=== PATIENT | male | born 1955 | race African-American/Black ===

== ENCOUNTER 2017-05-22 15:22 | Emergency (ER) | payer OTHER ==
[~2017-05-22] VITALS: Ht 177.8 cm; Wt 64.1 kg
[2017-05-22 15:27] VITALS: BP 136/96
[2017-05-22] MEDS ORDERED: NEOMYCIN-POLYMY10 M1 BOTH EARS (16:55)
[2017-05-22] MEDS ORDERED: NORCO 5/3251 TABLET PO (16:55)
[2017-05-22] MEDS ORDERED: ACYCLOVIR200 MG PO (16:55)
== END 2017-05-22 17:22 | disposition home or self-care (01) ==
LOC: EME 15:22
DX: B02.9 Zoster without complications (principal)
CPT/HCPCS: 99281; 99284

== ENCOUNTER 2017-07-02 10:17 | Emergency (ER) | payer OTHER ==
[~2017-07-02] VITALS: Ht 177.8 cm; Wt 65.3 kg
[~2017-07-02 10:17] MED LIST: ACYCLOVIR200 MG PO; NEOMYCIN-POLYMY10 M1 BOTH EARS; NORCO 5/3251 TABLET PO
[2017-07-02 11:50] LABS: HEMATOCRIT 41.5 % (38.0-50.0); MCH 29.4 PG (29.0-34.0); MCHC 34.9 G/DL (30.0-36.0); MEAN PLAT.VOLUME 8.9 uM^3 (9.0-12.4); PLATELET COUNT 297 K/uL (156-360); RBC DIS.WIDTH-CV 13.6 % (11.8-14.6); RBC DIS.WIDTH-SD 41.8 % (39-53); RED BLOOD COUNT 4.94 M/uL (4.00-5.50); WHITE BLOOD COUNT 5.6 K/uL (4.1-10.2)
[2017-07-02 12:04] LABS: CHLORIDE 100 mEq/L (99-109); POTASSIUM 3.7 mEq/L (3.7-5.4); SODIUM 138 mEq/L (136-147)
[2017-07-02 12:05] LABS: GLUCOSE 113 mg/dL (70-99)
[2017-07-02 12:07] LABS: ANION GAP 12 MEQ/L (2-14)
[2017-07-02 12:09] LABS: GFR ESTIMATE (CALCULATED) > 59 mL/min/
[2017-07-02 12:10] LABS: UREA NITROGEN (BUN) 12 mg/dL (9-23)
[2017-07-02] MEDS ORDERED: PERCOCET 5/31 TABLET PO (15:05)
[2017-07-02] MEDS ORDERED: DIAMOX SEQUELS500 MG PO (15:05)
[2017-07-02] MEDS ORDERED: LATANOPROST2.5 ML LEFT EYE (15:05)
[2017-07-02] MEDS ORDERED: COSOPT EYE DROPS5 ML LEFT EYE (15:05)
[2017-07-02] MEDS ORDERED: ALPHAGAN P100 DROP/1 LEFT EYE (15:05)
[2017-07-02 15:26] VITALS: BP 119/89
== END 2017-07-02 15:28 | disposition home or self-care (01) ==
LOC: EME 10:17
PROVIDERS: Emergency Medicine
DX: H40.89 Other specified glaucoma (principal); R51 Headache; J32.9 Chronic sinusitis, unspecified; F17.200 Nicotine dependence, unspecified, uncomplicated
CPT/HCPCS: 70450; 70486; 80048; 85027; 99281; 99285; J2270

== ENCOUNTER 2018-02-08 23:33 | Inpatient (IN) | payer OTHER ==
[~2018-02-08] VITALS: Ht 175.3 cm; Wt 62.9 kg
[~2018-02-08 23:33] MED LIST changes: +ALPHAGAN P100 DROP/1 LEFT EYE; +COSOPT EYE DROPS5 ML LEFT EYE; +DIAMOX SEQUELS500 MG PO; +LATANOPROST2.5 ML LEFT EYE; +PERCOCET 5/31 TABLET PO
[2018-02-09 00:09] LABS: HEMATOCRIT 43.6 % (38.0-50.0); HEMOGLOBIN 15.8 G/DL (12.5-16.6); MCH 30.2 PG (29.0-34.0); MCHC 36.2 G/DL (30.0-36.0); MCV 83.2 FL (86-99); PLATELET COUNT 261 K/uL (156-360); RBC DIS.WIDTH-CV 11.8 % (11.8-14.6); RBC DIS.WIDTH-SD 35.7 % (39-53); RED BLOOD COUNT 5.24 M/uL (4.00-5.50); WHITE BLOOD COUNT 5.1 K/uL (4.1-10.2)
[2018-02-09 00:32] LABS: ALBUMIN 4.6 G/DL (3.2-4.8); ALKALINE PHOSPHATASE 64 IU/L (3-129); ALT (GPT) 7 IU/L (3-49); AST (GOT) 12 IU/L (2-34); CHLORIDE 101 MEQ/L (99-109); GFR ESTIMATE (CALCULATED) > 59 mL/min/ (58.99-99999); GLUCOSE 109 mg/dL (70-99); POTASSIUM 3.6 MEQ/L (3.7-5.4); SODIUM 136 MEQ/L (136-147); TOTAL BILIRUBIN 1.4 MG/DL (0.0-1.0); TOTAL PROTEIN 7.1 G/DL (6.4-8.3); UREA NITROGEN (BUN) 15 mg/dL (9-23)
[2018-02-09 02:56] LABS: TROP-I INTERPRETATION NEGATIVE; TROPONIN-I < 0.01 ng/mL (0.0-0.30)
[2018-02-09 02:57] LABS: APPEARANCE CLEAR ((CLEAR)); BILIRUBIN NEGATIVE; BLOOD SMALL; COLOR STRAW ((YELLOW)); GLUCOSE (STRIP) NEGATIVE; KETONES NEGATIVE; LEUKOCYTES NEGATIVE; NITRITE NEGATIVE; PROTEIN (STRIP) NEGATIVE; SPECIFIC GRAVITY 1.008 (1.000-1.030)
[2018-02-09 03:03] LABS: TROP-I INTERPRETATION NEGATIVE; TROPONIN-I < 0.01 ng/mL (0.0-0.30)
[2018-02-09 03:03] LABS: BACTERIA NONE SEEN /HPF; EPITHELIAL CELLS RARE /HPF; MUCUS TRACE /LPF; RED BLOOD CELLS 0-5 /HPF (0-5); UCUL ADDED? NO; WHITE BLOOD CELLS 0-5 /HPF (0-5)
[2018-02-09 05:42] LABS: HDL CHOLESTEROL 40 MG/DL (Desirable>=40); LDL CHOLESTEROL 97 mg/dL (Desirable<100); NON-HDL CHOLESTEROL 116 mg/dL (Desirable<160); TOTAL CHOLESTEROL 156 mg/dL (Desirable<200); TRIGLYCERIDES 94 MG/DL (Normal: <150)
[2018-02-09 06:32] VITALS: BP 171/91
[2018-02-09 08:45] LABS: HEMOGLOBIN A1c (GLYCOHEMOGLOB) 5.3 % (Below 5.7)
[2018-02-09] MEDS ORDERED: LATANOPROST2.5 ML RIGHT EYE (10:42)
[2018-02-09] MEDS ORDERED: TIVICAY50 MG PO (10:43)
[2018-02-09] MEDS ORDERED: PREZCOBIX 8001 EACH PO (10:43)
[2018-02-09] MEDS ORDERED: TRUVADA1 TABLET PO (10:44)
[2018-02-09 12:09] VITALS: BP 140/87
[2018-02-09 12:25] LABS: TROP-I INTERPRETATION NEGATIVE; TROPONIN-I < 0.01 ng/mL (0.0-0.30)
[2018-02-09 15:44] VITALS: BP 127/82
[2018-02-09 19:51] VITALS: BP 117/82
[2018-02-09 23:57] VITALS: BP 133/86
[2018-02-10 03:21] VITALS: BP 121/71
[2018-02-10 07:56] VITALS: BP 125/77
[2018-02-10 12:14] VITALS: BP 113/77
[2018-02-10 15:53] VITALS: BP 116/67
[2018-02-10 20:03] VITALS: BP 137/82
[2018-02-10 23:39] VITALS: BP 123/79
[2018-02-11 03:45] VITALS: BP 113/60
[2018-02-11 07:40] VITALS: BP 118/70
[2018-02-11 11:51] VITALS: BP 103/68
[2018-02-11 19:25] VITALS: BP 92/57
[2018-02-11 23:30] VITALS: BP 105/60
[2018-02-12] VITALS (7 sets, daily range): BP systolic 86–133; BP diastolic 51–78
[2018-02-13 00:22] VITALS: BP 117/79
[2018-02-13 03:50] VITALS: BP 122/79
[2018-02-13 07:08] VITALS: BP 108/69
[2018-02-13 15:16] VITALS: BP 106/62
[2018-02-13 23:53] VITALS: BP 123/85
[2018-02-14 07:23] VITALS: BP 119/73
[2018-02-14] MEDS ORDERED: ACETAZOLAMIDE500 MG PO (14:56)
[2018-02-14] MEDS ORDERED: AMITRIPTYLINE H25 MG PO (14:56)
[2018-02-14] MEDS ORDERED: REGLAN10 MG PO (14:56)
[2018-02-14] MEDS ORDERED: ANTIVERT25 MG PO (14:56)
[2018-02-14] MEDS ORDERED: COMBIGAN O20 DROP/5 LEFT EYE (15:55)
[2018-02-14] MEDS ORDERED: OXYCODONE HCL5 MG PO (16:01)
[2018-02-14 16:05] VITALS: BP 148/89
== END 2018-02-14 19:08 | disposition home or self-care (01) | DRG 125 ==
LOC: EME 23:33 → EDOF 02-09 04:39 → 5SOUTH 02-09 04:39 → ENRESERV 02-09 04:40 → 5SOUTH 02-09 05:57
PROVIDERS: Emergency Medicine; Physician Assistant
DX: H40.9 Unspecified glaucoma (principal); H93.3X2 Disorders of left acoustic nerve; H27.10 Unspecified dislocation of lens; H54.40 Blindness, one eye, unspecified eye; Z21 Asymptomatic human immunodeficiency virus [HIV] infection status; E87.6 Hypokalemia; F17.210 Nicotine dependence, cigarettes, uncomplicated; Z66 Do not resuscitate
CPT/HCPCS: 70450; 80053; 80061; 81003; 83036; 83735; 84484; 85027; 85651; 93005; 93880; 99281; 99285; J1644; J1885; J2270; J2405; J2765; J7030; J7040

== ENCOUNTER 2018-02-27 16:10 | Inpatient (IN) | payer OTHER ==
[~2018-02-27] VITALS: Ht 175.3 cm; Wt 53.1 kg
[~2018-02-27 16:10] MED LIST changes: +ACETAZOLAMIDE500 MG PO; +AMITRIPTYLINE H25 MG PO; +ANTIVERT25 MG PO; +COMBIGAN O20 DROP/5 LEFT EYE; +LATANOPROST2.5 ML RIGHT EYE; +OXYCODONE HCL5 MG PO; +PREZCOBIX 8001 EACH PO; +REGLAN10 MG PO; +TIVICAY50 MG PO; +TRUVADA1 TABLET PO
[2018-02-27 18:16] LABS: HEMATOCRIT 44.4 % (38.0-50.0); HEMOGLOBIN 15.8 G/DL (12.5-16.6); MCH 29.9 PG (29.0-34.0); MCHC 35.6 G/DL (30.0-36.0); MCV 83.9 FL (86-99); PLATELET COUNT 229 K/uL (156-360); RBC DIS.WIDTH-CV 11.6 % (11.8-14.6); RED BLOOD COUNT 5.29 M/uL (4.00-5.50); WHITE BLOOD COUNT 6.1 K/uL (4.1-10.2)
[2018-02-27 18:23] LABS: ALBUMIN 3.7 g/dL (3.2-4.8); CHLORIDE 99 mEq/L (99-109); POTASSIUM 4.2 mEq/L (3.7-5.4); SODIUM 136 mEq/L (136-147)
[2018-02-27 18:25] LABS: GLUCOSE 132 mg/dL (70-99)
[2018-02-27 18:26] LABS: TOTAL PROTEIN 6.6 g/dL (6.4-8.3)
[2018-02-27 18:27] LABS: TOTAL BILIRUBIN 0.9 mg/dL (0.0-1.0)
[2018-02-27 18:29] LABS: ALKALINE PHOSPHATASE 80 IU/L (3-129); CREATININE 1.2 mg/dL (0.6-1.3); GFR ESTIMATE (CALCULATED) > 59 mL/min/ (58.99-99999)
[2018-02-27 18:30] LABS: UREA NITROGEN (BUN) 39 mg/dL (9-23)
[2018-02-27 18:31] LABS: AST (GOT) 20 IU/L (2-34)
[2018-02-27 18:32] LABS: ALT (GPT) 16 IU/L (3-49)
[2018-02-27 18:33] LABS: LIPASE 89 U/L (1.0-51.0)
[2018-02-27 21:41] LABS: APPEARANCE CLEAR ((CLEAR)); BILIRUBIN NEGATIVE; BLOOD NEGATIVE; COLOR YELLOW ((YELLOW)); GLUCOSE (STRIP) NEGATIVE; KETONES NEGATIVE; LEUKOCYTES NEGATIVE; NITRITE NEGATIVE; PROTEIN (STRIP) NEGATIVE; SPECIFIC GRAVITY 1.025 (1.000-1.030)
[2018-02-27] MEDS ORDERED: LUMIGAN 0.50 DROP/22 BOTH EYES (23:50)
[2018-02-27] MEDS ORDERED: DUREZOL 0.100 DROP/5 BOTH EYES (23:50)
[2018-02-27] MEDS ORDERED: ATROPINE 1100 DROP/5 LEFT EYE (23:50)
[2018-02-27 23:53] LABS: BASOPHIL (%) 0.3 % (0-1); EOSINOPHIL (%) 0.9 % (0-5); EOSINOPHIL COUNT 0.1 K/uL (0-0.3); IMMATURE GRANULOCYTE (%) 0.2 % (0.0-0.7); LYMPHOCYTE (%) 28.1 % (15-42); LYMPHOCYTE COUNT 1.6 K/uL (1.0-2.8); MONOCYTE (%) 9.5 % (3-12); MONOCYTE COUNT 0.6 K/uL (0-0.8); NEUTROPHIL COUNT 3.5 K/uL (1.8-6.4)
[2018-02-28 02:37] VITALS: BP 128/86
[2018-02-28 07:50] VITALS: BP 157/79
[2018-02-28 08:57] LABS: FOLIC ACID (FOLATE) 7.2 NG/ML (5.0-22.0)
[2018-02-28 10:22] LABS: TREPONEMA ANTIBODY NEGATIVE (NEGATIVE)
[2018-02-28 11:21] VITALS: BP 123/90
[2018-02-28 11:49] LABS: HEPATITIS C ANTIBODY Nonreactive
[2018-02-28 15:24] LABS: HEMATOCRIT 44.6 % (38.0-50.0); HEMOGLOBIN 15.4 G/DL (12.5-16.6); MCH 28.9 PG (29.0-34.0); MCHC 34.5 G/DL (30.0-36.0); MCV 83.7 FL (86-99); PLATELET COUNT 216 K/uL (156-360); RBC DIS.WIDTH-CV 11.6 % (11.8-14.6); RBC DIS.WIDTH-SD 34.9 % (39-53); RED BLOOD COUNT 5.33 M/uL (4.00-5.50); WHITE BLOOD COUNT 5.5 K/uL (4.1-10.2)
[2018-02-28 15:25] VITALS: BP 146/94
[2018-02-28 15:55] LABS: CHLORIDE 100 MEQ/L (99-109); CREATININE 0.9 MG/DL (0.6-1.3); GFR ESTIMATE (CALCULATED) > 59 mL/min/ (58.99-99999); GLUCOSE 90 mg/dL (70-99); POTASSIUM 4.1 MEQ/L (3.7-5.4); SODIUM 134 MEQ/L (136-147); UREA NITROGEN (BUN) 17 mg/dL (9-23)
[2018-02-28 20:10] VITALS: BP 136/91
[2018-03-01 00:16] VITALS: BP 134/92
[2018-03-01 03:59] VITALS: BP 117/81
[2018-03-01 07:44] VITALS: BP 140/89
[2018-03-01 08:17] LABS: HEMATOCRIT 49.1 % (38.0-50.0); HEMOGLOBIN 16.9 G/DL (12.5-16.6); MCH 28.6 PG (29.0-34.0); MCHC 34.4 G/DL (30.0-36.0); MCV 83.2 FL (86-99); PLATELET COUNT 246 K/uL (156-360); RBC DIS.WIDTH-CV 11.4 % (11.8-14.6); RBC DIS.WIDTH-SD 34.6 % (39-53); WHITE BLOOD COUNT 5.4 K/uL (4.1-10.2)
[2018-03-01 08:50] LABS: ALBUMIN 4.3 G/DL (3.2-4.8); ALKALINE PHOSPHATASE 90 IU/L (3-129); ALT (GPT) 12 IU/L (3-49); AST (GOT) 23 IU/L (2-34); CHLORIDE 96 MEQ/L (99-109); CREATININE 0.8 MG/DL (0.6-1.3); DIRECT BILIRUBIN 0.2 mg/dL (0.0-0.3); GFR ESTIMATE (CALCULATED) > 59 mL/min/ (58.99-99999); GLUCOSE 72 mg/dL (70-99); POTASSIUM 4.2 MEQ/L (3.7-5.4); SODIUM 134 MEQ/L (136-147); TOTAL BILIRUBIN 0.9 MG/DL (0.0-1.0); TOTAL PROTEIN 7.3 G/DL (6.4-8.3); UREA NITROGEN (BUN) 12 mg/dL (9-23)
[2018-03-01 12:00] VITALS: BP 128/105
[2018-03-01 19:00] VITALS: BP 139/93
[2018-03-02] VITALS (7 sets, daily range): BP systolic 99–188; BP diastolic 69–89
[2018-03-03 04:14] VITALS: BP 116/80
[2018-03-03 06:57] VITALS: BP 107/81
[2018-03-03 11:08] VITALS: BP 101/66
[2018-03-03 13:13] LABS: CD4/CD8 Ratio 0.93 (0.86-5.00)
[2018-03-03 16:01] VITALS: BP 99/71
[2018-03-03 19:27] VITALS: BP 105/67
[2018-03-03 23:56] VITALS: BP 98/74
[2018-03-04 03:50] VITALS: BP 103/74
[2018-03-04 05:51] LABS: HEMATOCRIT 44.8 % (38.0-50.0); HEMOGLOBIN 15.7 G/DL (12.5-16.6); MCH 29.4 PG (29.0-34.0); MCV 83.9 FL (86-99); PLATELET COUNT 234 K/uL (156-360); RBC DIS.WIDTH-CV 11.7 % (11.8-14.6); RBC DIS.WIDTH-SD 35.4 % (39-53); RED BLOOD COUNT 5.34 M/uL (4.00-5.50); WHITE BLOOD COUNT 5.4 K/uL (4.1-10.2)
[2018-03-04 06:15] LABS: CHLORIDE 103 MEQ/L (99-109); CREATININE 1.1 MG/DL (0.6-1.3); GFR ESTIMATE (CALCULATED) > 59 mL/min/ (58.99-99999); GLUCOSE 85 mg/dL (70-99); POTASSIUM 4.2 MEQ/L (3.7-5.4); SODIUM 137 MEQ/L (136-147)
[2018-03-04 06:17] LABS: UREA NITROGEN (BUN) 21 mg/dL (9-23)
[2018-03-04 07:58] VITALS: BP 113/88
[2018-03-04 15:14] VITALS: BP 120/93
[2018-03-05 00:24] VITALS: BP 119/78
[2018-03-05 07:28] VITALS: BP 126/76
[2018-03-05 10:31] VITALS: BP 121/82
[2018-03-05 16:19] VITALS: BP 129/80
[2018-03-05 18:59] VITALS: BP 122/85
[2018-03-05 23:31] VITALS: BP 142/72
[2018-03-06 03:49] VITALS: BP 113/83
[2018-03-06 06:54] LABS: CHLORIDE 105 MEQ/L (99-109); CREATININE 1.1 MG/DL (0.6-1.3); GFR ESTIMATE (CALCULATED) > 59 mL/min/ (58.99-99999); GLUCOSE 97 mg/dL (70-99); POTASSIUM 4.7 MEQ/L (3.7-5.4); SODIUM 136 MEQ/L (136-147); UREA NITROGEN (BUN) 18 mg/dL (9-23)
[2018-03-06 07:43] VITALS: BP 133/88
[2018-03-06 23:16] VITALS: BP 114/73
[2018-03-07 07:13] VITALS: BP 142/88
[2018-03-07 15:29] VITALS: BP 137/79
[2018-03-07 17:47] LABS: APPEARANCE CLEAR, COLORLESS; CSF TUBE NUMBER TUBE #3
[2018-03-07 17:48] LABS: RED CELL COUNT 3 /MM^3 (0-1); WHITE CELL COUNT 49 /MM^3 (0-5)
[2018-03-07 18:00] LABS: CSF PROTEIN 239 mg/dL (15-45); GLUCOSE, CSF 58 mg/dL (40-80)
[2018-03-07] MEDS ORDERED: CEFTRIAXONE2 G1 IV (18:07)
[2018-03-07] MEDS ORDERED: VANCOMYCIN HCL1 GM IV (18:08)
[2018-03-07 18:44] LABS: CSF EOSINOPHILS 0 % (0-25); MONONUCLEAR WBC'S 100 % (50-90); POLYNUCLEAR WBC'S 0 % (0-3)
== END 2018-03-07 19:10 | disposition short-term general hospital (02) | DRG 919 ==
LOC: EME → EDBD 16:10 → EDOF 02-28 00:31 → ENRESERV 02-28 00:32 → 4SOUTH 02-28 02:23 → ENRESERV 03-05 07:43 → 5EAST 03-05 10:20
PROVIDERS: Hospitalist; Nurse Practitioner Family; Physician Assistant; Physician Assistant Medical
PROC: 009U3ZX Drainage of Spinal Canal, Percutaneous Approach, Diagnostic (ICD-10-PCS; principal; 2018-03-07)
DX: H59.89 Other postprocedural complications and disorders of eye and adnexa, not elsewhere classified (principal); H44.19 Other endophthalmitis; B20 Human immunodeficiency virus [HIV] disease; Y83.8 Other surgical procedures as the cause of abnormal reaction of the patient, or of later complication, without mention of misadventure at the time of the procedure; R41.82 Altered mental status, unspecified; R64 Cachexia; T85.22XA Displacement of intraocular lens, initial encounter; Y77.2 Prosthetic and other implants, materials and accessory ophthalmic devices associated with adverse incidents; H40.1120 Primary open-angle glaucoma, left eye, stage unspecified; H33.22 Serous retinal detachment, left eye; H54.62 Unqualified visual loss, left eye, normal vision right eye; I10 Essential (primary) hypertension; J44.9 Chronic obstructive pulmonary disease, unspecified; M89.9 Disorder of bone, unspecified; G93.9 Disorder of brain, unspecified; R63.0 Anorexia; F17.210 Nicotine dependence, cigarettes, uncomplicated; Z66 Do not resuscitate; Z68.1 Body mass index [BMI] 19.9 or less, adult
CPT/HCPCS: 62270; 70450; 70496; 70551; 71046; 74176; 74247; 77003; 78306; 80048; 80053; 80076; 80202; 81003; 82607; 82746; 82945; 83690; 84157; 84443; 85025; 85027; 86355 90; 86359 90; 86360 90; 86780; 86803; 87070; 87102; 87205; 87210; 87536; 88108; 88305; 89051; 93005; 99281; 99285; A9503; C9113; J0133; J0696; J1644; J2405; J2765; J3370; J7030; J7050; J7120